=== PATIENT | female | born 1990 | race Caucasian/White ===

== ENCOUNTER 2022-02-08 06:26 | Emergency (ER) | payer OTHER ==
[~2022-02-08] VITALS: Ht 160 cm; Wt 68.0 kg
[~2022-02-08 06:26] MED LIST: AMOX250C PO; IBUP-1957 PO
[2022-02-08 06:37] VITALS: BP 112/82
--- NOTE | 2022-02-08 06:40 | NUR ---
TO ER BED 10. BIBS WOKE UP WITH SWOLLEN L INDEX FINGER AND STUCK RING , 31 WEEKS . PT IS ALERT AND ORIENTED. RR EVEN AND NON LABORED. CONNECTED TO MONITOR. AWAITING MD JUAREZ.
--- NOTE | 2022-02-08 12:37 | NUR ---
Patient discharged to home in stable condition. Written and verbal after care instructions given. Patient verbalizes understanding of instruction.
== END 2022-02-08 12:37 | disposition home or self-care (01) ==
LOC: ER 06:47
DX: S60.445A External constriction of left ring finger, initial encounter (principal); Z79.899 Other long term (current) drug therapy; W49.04XA Ring or other jewelry causing external constriction, initial encounter; Y93.89 Activity, other specified; Y92.89 Other specified places as the place of occurrence of the external cause; Y99.8 Other external cause status
CPT/HCPCS: 99284; J7040